=== PATIENT | male | born 1985 | race Caucasian/White ===

== ENCOUNTER 2017-05-27 12:46 | Emergency (ER) | payer OTHER ==
[~2017-05-27] VITALS: Ht 188 cm; Wt 79.4 kg
--- NOTE | ~2017-05-27 | EKG ---
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 : 1985 Requested By: Leesa Tim Order Number: [id number] MD: Tigre Narayan Measurements Intervals [place] Rate: 54 P: 78 MS: 146 QRS: 91 QRSD: 101 T: 64 QT: 426 QTc: 404 Interpretive Statements Sinus rhythm Borderline right axis deviation ST elevation suggests acute pericarditis vs early repolarization No previous ECG available for comparison Electronically Signed On 05-27-2017 21:13:01 CDT by Tigre Narayan [email or web address] <ELECTRONICALLY SIGNED> By: Tigre Narayan MD 05/27/173 D: 10/1316 16 Tigre Narayan MD /[email or web address]
[~2017-05-27 12:46] MED LIST: IBUPROFEN 600600 M1 PO; KRATOM; NOHOMEMEDICATIONS; NORCO 5-325 TA1 EACH PO
[2017-05-27] MEDS ORDERED: PREDNISONE 20 M20 MG PO (14:05)
[2017-05-27 14:36] VITALS: BP 121/62
== END 2017-05-27 14:35 | disposition home or self-care (01) ==
LOC: ER 12:46
DX: R06.00 Dyspnea, unspecified (principal); M54.6 Pain in thoracic spine; F10.99 Alcohol use, unspecified with unspecified alcohol-induced disorder; Z87.891 Personal history of nicotine dependence